=== PATIENT | female | born 1970 | race Caucasian/White ===

== ENCOUNTER 2016-08-31 04:10 | Emergency (ER) | payer BC ==
[2016-08-31] MEDS ORDERED: CHARCOAL/SORBITOL SOLUTION 50 G/240 ML BTL PO ONE ×3 (04:20→04:34)
[2016-08-31] MEDS ORDERED: NORMAL SALINE 1,000 ML IV ONE (04:20)
[2016-08-31 04:40] LABS: Hematocrit 36.5 % (37.0-47.0); Hemoglobin 12.2 gm/dL (12.5-16.0); Mean Cell Volume 88.8 fl (78-100); Mean Corpuscular Hemoglobin 29.7 pg (27-31); Mean Corpuscular Hgb Conc 33.4 g/dl (32-36); Neutrophil # 4.1 K/mm3 (1.3-6.0); Neutrophil % 47.3 % (42-75.0); Platelet Count 244 K/mm3 (150-450); Red Blood Count 4.11 M/mm3 (4.2-5.4); Red Cell Distribution Width 13.3 % (11.5-14.0); White Blood Count 8.6 K/mm3 (4.0-10.5)
[2016-08-31 04:52] LABS: Prothrombin Time (Patient) 10.2 Seconds (9.4-11.4)
[2016-08-31 04:56] LABS: ALT 15 U/L (19-67); AST 11 U/L (0-48); Albumin * 3.9 gm/dl (3.4-5.0); Alkaline Phosphatase * 85 U/L (50-170); Anion Gap 13.8 mmol/L (6.8-13.8); BUN/Creatinine Ratio 5.8 (9.0-21.6); Bilirubin, Total 0.2 mg/dL (0.0-1.1); Blood Urea Nitrogen 5 mg/dL (3-23); Ca. Corrected For Albumin 8.8 mg/dL (8.4-10.2); Chloride 103 mmol/L (97-106); Glucose * 102 mg/dL (70-110); Potassium 3.8 mmol/L (3.4-4.6); Salicylate Less than 2.8 mg/dL (2.8-20.0); Sodium 141 mmol/L (132-142); Total Protein 7.3 gm/dL (6.2-8.2)
[2016-08-31 04:57] LABS: INR 0.98 INR (0.90-1.10)
--- NOTE | 2016-08-31 05:12 | ERNOTE ---
<Paula Kapadia - Last Filed: 08/31/16 07:52> Medical Problem HPI - General Chief Complaint: Drug Overdose Time Seen by Provider: 08/31/16 04:19 Source: patient Exam Limitations: no limitations - Immun/Allergies/Home Medications Immunizations: IMMUNIZATION HX Immunizations Up to Date No History of Influenza Vaccine Yes Hx Pneumococcal Vaccination No Allergies/Adverse Reactions: Allergies No Known Drug Allergies Allergy (Verified 08/31/16 07:25) Home Medications: HOME MEDICATIONS Cyclobenzaprine HCl [Flexeril] 10 mg PO TID PRN #30 tab 11/07/15 [Last Taken Unknown] Levothyroxine Sodium [Synthroid] 75 mcg PO DAILY 11/07/15 [Last Taken Unknown] - History of Present History Narrative: Patient took 20 OTC Advils in an attempt to kill herself because she found out that her spouse was cheating on her. She is remorseful. She has no symptoms. She took the Advils 30 minutes prior to presentation to ED at home. Review of Systems - Review of Systems Constitutional: Present: no symptoms reported EYE: Present: no symptoms reported ENT: Present: no symptoms reported Respiratory: Present: no symptoms reported Cardiology: Present: no symptoms reported Gastrointestinal/Abdominal: Present: no symptoms reported Genitourinary: Present: no symptoms reported Musculoskeletal: Present: no symptoms reported Skin: Present: no symptoms reported - Patient's Past Medical History Patient History - Medical: Hypothyroidism Patient History - Cardiac/Respiratory: No pertinent hx Patient History - Cancer: No Hx of Cancer Patient History - Other: None LMP (females 10-50): 1 month - Social History Living Situations: home Abuse History: No History of abuse Psych History: Hx of Depression, Current tx/ever been on anti-depressants or anti-anxiety meds Smoking Status: Former smoker Have you smoked in the past 12 months: No Alcohol Use: occasionally Drug Use: none - Immunizations Immunizations Up to Date: No Hx Pneumococcal Vaccination: No History of Influenza Vaccine: Yes Physical Exam - Physical Exam General Appearance: Present: wd/wn, alert, no apparent distress - tearful and remorseful Eye Exam: Normal inspection: bilateral, PERRL: bilateral, EOMI: bilateral Ears, Nose, Throat: Present: normal ENT inspection, cerumen impaction Neck: Present: normal inspection, nontender, supple, full range of motion Respiratory: Present: no respiratory distress, normal breath sounds, no accessory muscle use, chest nontender, lungs clear Cardiovascular/Chest: Present: regular rate, rhythm, no murmur, normal peripheral pulses Gastrointestinal/Abdominal: Present: normal bowel sounds, nontender, nondistended, soft, no organomegaly Extremity Exam: Present: normal inspection Neurological Exam: Present: alert, oriented, normal mood/affect, no motor/ sensory deficits ED Progress - Results and Orders Patient's Lab Results:: I have reviewed the patient's lab results. - Vital Signs Patient's Vital Signs:: I have reviewed the patient's vital signs. Vital Signs: Vital Signs 08/31/16 08/31/16 04:17 04:23 Temperature 37.2 C Pulse Rate 86 Respiratory 18 Rate Blood Pressure 160/90 O2 Sat by Pulse 98 Oximetry - EKG EKG: NSR - Progress/Reassessment Chief Complaint: Drug Overdose - Transfer of Care Physician Sign Out: Paula Kapadia Receiving Physician: Eduar Whitfield Pending Results: Physician/consult arrival Plan - Plan Plan: This patient did take the Advils in an attemp to kill herself and we will consult Psych to see and evaluate patient. She has remained medically stable in our ED. Departure - Departure Clinical Impression: Overdose Disposition: Home self-care Condition: Stable Additional Instructions: Rest. Fluids. Follow-up with your primary doctor friday for a re-check. Return for thoughts of harming yourself, pain or if your condition worsens or changes in any way. Referrals: Blaire Huerta MD [Primary Care Provider] - <Eduar Whitfield - Last Filed: 08/31/16 08:45> Medical Problem HPI - Immun/Allergies/Home Medications Immunizations: IMMUNIZATION HX Immunizations Up to Date No History of Influenza Vaccine Yes Hx Pneumococcal Vaccination No ED Progress - Vital Signs Vital Signs: Vital Signs 08/31/16 08/31/16 08/31/16 04:17 04:23 04:43 Temperature 37.2 C Pulse Rate 86 93 Respiratory 18 22 H Rate Blood Pressure 160/90 139/85 O2 Sat by Pulse 98 97 Oximetry 08/31/16 08/31/16 08/31/16 05:23 05:57 07:10 Temperature Pulse Rate 88 81 84 Respiratory 18 20 19 Rate Blood Pressure 154/79 137/88 124/75 O2 Sat by Pulse 96 95 93 Oximetry 08/31/16 08:30 Temperature Pulse Rate 84 Respiratory 12 Rate Blood Pressure 132/78 O2 Sat by Pulse 97 Oximetry - Progress/Reassessment Progress Note-Subjective: 08/31/16 08:40 Patient turned over to me at shift change while being seen by Mei. [facility] assessment by Zeenat Mckenzie was asked for by Dr Kapadia as the patient was not feeling suicidal. [facility] obtained a full assessment and felt the patient could be discharged home with counseling. She is medically stable. I spoke with the patient and she is not suicidal, she contracts for safety. She staes this happened mostly because she rarely drinks and she thinks it was the alcohol , she now has no thoughts of harming self or others. Please see full [facility] report as they clear her to go home. She is not suicidal. Medically stable. Please see Dr Kapadia's note for full H&P.
[2016-08-31 08:36] VITALS: BP 132/78
== END 2016-08-31 08:58 | disposition home or self-care (01) ==
LOC: ER 04:10
DX: T39.312A Poisoning by propionic acid derivatives, intentional self-harm, initial encounter (principal); Z87.891 Personal history of nicotine dependence; E03.9 Hypothyroidism, unspecified
CPT/HCPCS: 36415; 36600; 80053; 82803; 84703; 85025; 85610; 93005; 99282; G0480; G0481